=== PATIENT | female | born 1980 | race Caucasian/White ===

== ENCOUNTER 2021-08-30 10:49 | Observation (INO) | payer SELFPAY ==
[~2021-08-30] VITALS: Ht 160 cm; Wt 69.0 kg
--- NOTE | 2021-08-30 11:44 | RAD ---
Study: XR ABDOMEN COMP ACUTE Indication: Swallowed battery. Comparison: None. Findings: The cardiomediastinal silhouette and sg are within normal limits. No localized airspace opacity, pl eural effusion or pneumothorax. Two metallic foreign bodies, one projecting at the right upper quadrant and the other at the right lo wer quadrant. The right lower quadrant foreign body is likely within proximal colon. Uncertain locati on of the right upper quadrant foreign body. Nonobstructive bowel gas pattern. Mild colonic stool bur den. No radiographic evidence for pneumoperitoneum. Impression: Two ingested metallic foreign bodies projecting at the right upper and lower quadrants. See above. Electronically signed by: HARRISON KARIMI MD (08/30/2021 11:41 AM) [facility]
[2021-08-30] MEDS ORDERED: IV NORMAL SALINE 1000ML BAG 1,000 ML IV ONE (12:00)
[2021-08-30] MEDS ORDERED: fentaNYL PF VIAL 100 MCG/2 ML VIAL IVP ONE (12:00)
[2021-08-30] MEDS ORDERED: MORPHINE SULFATE 2 MG/ML INJ. IVP ONE (12:45)
[2021-08-30] MEDS ORDERED: FAMOTIDINE 20 MG/2 ML VIAL IVP ONE ×2 (12:45)
[2021-08-30] MEDS ORDERED: LIDO:MAALOX 1:1 20 ML SINGLE DOSE. SWSW ONE (12:45)
[2021-08-30] MEDS ORDERED: ONDANSETRON PF 4 MG/2 ML VIAL. IVP ONE (12:45)
--- NOTE | 2021-08-30 13:09 | PHYS DOC ---
Past Medical History Additional Past Medical Histor: CROHNS Past Surgical History: Hysterectomy, Tubal ligation Smoking Status: Never Smoker Alcohol Use: Occasionally Adult General Chief Complaint Chief Complaint: FOREIGN BODY HPI HPI The patient is a 40-year-old female with a history of anxiety and depression on medications including lithium and Xanax, as well as a questionable history of Crohn's disease, not on any medication for management. She presents for evaluation of what she describes as an inadvertent ingestion of a watch button battery prior to arrival. Patient states that she was "multitasking," changing the battery in her watch while she was taking her pills. She ended up swallowing a watch battery. This occurred a couple of hours prior to arrival. She denies that there was any self-harm intent and denies suicidal ideation. Patient endorses mild epigastric and right upper quadrant abdominal discomfort. She endorses some mild nausea as well. She denies vomiting, shortness of breath or chest pain, lower abdominal discomfort, flank pain, back pain, changes in bowel habits. Patient is alert and appropriately interactive and in no acute distress, although appearing quite anxious. Review of Systems Review of Systems A 12 point review of systems was completed and was negative except where noted in HPI above. Current Medications Current Medications Current Medications Medications (Trade) Dose Ordered Sig/Anna Start Time Stop Time Status Last Admin Dose Admin Fentanyl Citrate (Fentanyl 2ml Vial) 50 mcg 1X ONCE 08/30/21 12:00 08/30/21 12:01 Cancel Sodium Chloride 1,000 ml @ 1,000 mls/hr 1X ONCE 08/30/21 12:00 08/30/21 12:59 DC Allergies Allergies Allergies Coded Allergies Type Severity Reaction Last Updated Verified NSAIDS (Non-Steroidal Anti-Inflamma Allergy Unknown 08/30/21 No Physical Exam Physical Exam 40-year-old female appearing nontoxic and in no acute distress. Head is normocephalic and atraumatic. Neck is supple and nontender. Oropharynx is moist. Lungs are clear to auscultation at all stations. There is normal S1 and S2 without rubs or gallops and capillary refill is appropriate, less than 2 seconds globally. Abdomen is soft, nontender and nondistended. Skin is warm and dry without cyanosis, clubbing or edema. Psychiatrically, the patient demonstrates appropriate mood and affect and is alert. Current Patient Data Vital Signs Vital Signs Date Time Temp Pulse Resp B/P (MAP) Pulse Ox O2 Delivery O2 Flow Rate FiO2 08/30/21 11:00 98.5 90 16 114/69 (84) 96 Room Air 98.5 EKG EKG [] Radiology/Procedures Radiology/Procedures Study: XR ABDOMEN COMP ACUTE Indication: Swallowed battery. Comparison: None. Findings: The cardiomediastinal silhouette and sg are within normal limits. No localized airspace opacity, pleural effusion or pneumothorax. Two metallic foreign bodies, one projecting at the right upper quadrant and the other at the right lower quadrant. The right lower quadrant foreign body is likely within proximal colon. Uncertain location of the right upper quadrant foreign body. Nonobstructive bowel gas pattern. Mild colonic stool burden. No radiographic evidence for pneumoperitoneum. Impression: Two ingested metallic foreign bodies projecting at the right upper and lower quadrants. See above. Electronically signed by: HARRISON KARIMI MD (08/30/2021 11:41 AM) [facility] DICTATED and SIGNED BY: HARRISON KARIMI MD DATE: 08/30/21 [id number] 0 Course & Med Decision Making Course & Med Decision Making Acute abdominal series demonstrates no esophageal foreign body and a foreign body compatible with a button battery in the duodenum. There is also a second intestinal foreign body located over the cecum or the proximal large intestine. This appears to be a coin. Patient is unable to tell me how or why there is a coin in her abdomen. Case is discussed with Dr. Brady of gastroenterology who states that the battery is too far into the duodenum to be retrieved via upper endoscopy. She recommends that, in view of the patient's upper abdominal discomfort, that she be observed in the hospital with serial abdominal examinations and serial x-rays to determine next best steps. She also recommends that general surgery be consulted for management assistance. Have discussed case with Dr. Ramsey. Will bring in for further care under Dr. Quach, who graciously accepts. Suresh Disclaimer Dragon Disclaimer This electronic medical record was generated, in whole or in part, using a voice recognition dictation system. Departure Departure Impression: Primary Impression: Ingestion of button battery Disposition: ADMITTED INPATIENT Condition: STABLE Referrals: NO PCP (PCP) Problem Qualifiers Primary Impression: Ingestion of button battery Encounter type: initial encounter Qualified Codes: T18.9XXA - Foreign body of alimentary tract, part unspecified, initial encounter EFREM BURTON MD Aug 30, 2021 13:09
[2021-08-30 13:19] LABS: BASO % 1 % (0-3); EOS # 0.2 x10^3/uL (0.0-0.7); EOS % 3 % (0-3); HEMATOCRIT 31.8 % (36.0-47.0); HEMOGLOBIN 10.8 g/dL (12.0-15.5); LYMPH # 2.2 x10^3/uL (1.0-4.8); LYMPH % 34 % (24-48); MEAN CORPUSCULAR HEMOGLOBIN 33 pg (25-35); MEAN CORPUSCULAR HGB CONC 34 g/dL (31-37); MEAN CORPUSCULAR VOLUME 96 fL (79-100); MONO # 0.4 x10^3/uL (0.0-1.1); MONO % 7 % (0-9); NEUT # 3.4 x10^3/uL (1.8-7.7); NEUT % 55 % (31-73); PLATELET COUNT 267 x10^3/uL (140-400); RED CELL DISTRIBUTION WIDTH 13.4 % (11.5-14.5); WHITE BLOOD COUNT 6.3 x10^3/uL (4.0-11.0)
[2021-08-30 13:21] LABS: CALCIUM 7.7 mg/dL (8.5-10.1); CREATININE 0.6 mg/dL (0.6-1.0); GFR 111.9; POTASSIUM 3.7 mmol/L (3.5-5.1)
[2021-08-30 13:24] LABS: LI < 0.2 mmol/L (0.6-1.2)
[2021-08-30 13:29] LABS: ALBUMIN 3.4 g/dL (3.4-5.0); TOTAL BILIRUBIN 0.4 mg/dL (0.2-1.0); TOTAL PROTEIN 6.7 g/dL (6.4-8.2)
[2021-08-30 13:30] VITALS: BP 120/76
[2021-08-30 13:36] LABS: PREG TEST PT QUAL NEGATIVE (NEG)
--- NOTE | 2021-08-30 14:12 | PDOC2 ---
GI CONSULT Reason For Consult: foreign body ingestion HPI: HPI: 40-year-old female with a history small and large intestinal Crohn's on Humira, bipolar disorder, anxiety and depression on medications including lithium and Xanax seen in ER for abdominal pain and battery ingestion. Patient states that she was "multitasking," changing the battery in her watch while she was taking her pills. She ended up swallowing a watch battery. This occurred a couple of hours prior to arrival. She denies that there was any self-harm intent and denies suicidal ideation. Patient endorses an electric shock like RUQ pain. She endorses some mild nausea as well. She denies vomiting, shortness of breath or chest pain, lower abdominal discomfort, flank pain, back pain, changes in bowel habits. She was eating jello when I walked in and stated that her pain went from a 8- 10/10. Study: XR ABDOMEN COMP ACUTE - Two ingested metallic foreign bodies projecting at the right upper and lower quadrants. See above. PMH: PMH: Additional Past Medical Histor: CROHNS, bipolar disorder Past Surgical History: Hysterectomy, Tubal ligation Smoking Status: Never Smoker Alcohol Use: Occasionally Meds- Humira [facility] mothr with UC son with Juvenile polyps All NSAIDs peanuts PCN Social History: Smoke: No ALCOHOL: none Drugs: None ROS: GEN: Denies fevers, chills, sweats HEENT: Denies blurred vision, sore throat CV: Denies chest pain RESP: Denies shortness of air, cough GI: Per HPI : Denies hematuria, dysuria ENDO: Denies weight changes NEURO: Denies confusion, dizziness MSK: Denies weakness, joint pain/swelling SKIN: Denies jaundice, pruritus VItals: Vitals: Vital Signs Date Time Temp Pulse Resp B/P (MAP) Pulse Ox O2 Delivery O2 Flow Rate FiO2 08/30/21 13:43 97.6 97.6 08/30/21 13:30 77 18 120/76 (91) 98 Room Air Labs: Labs: Laboratory Tests Test 08/30/21 13:05 White Blood Count 6.3 x10^3/uL (4.0-11.0) Red Blood Count 3.30 x10^6/uL (3.50-5.40) Hemoglobin 10.8 g/dL (12.0-15.5) Hematocrit 31.8 % (36.0-47.0) Mean Corpuscular Volume 96 fL (79-100) Mean Corpuscular Hemoglobin 33 pg (25-35) Mean Corpuscular Hemoglobin Concent 34 g/dL (31-37) Red Cell Distribution Width 13.4 % (11.5-14.5) Platelet Count 267 x10^3/uL (140-400) Neutrophils (%) (Auto) 55 % (31-73) Lymphocytes (%) (Auto) 34 % (24-48) Monocytes (%) (Auto) 7 % (0-9) Eosinophils (%) (Auto) 3 % (0-3) Basophils (%) (Auto) 1 % (0-3) Neutrophils # (Auto) 3.4 x10^3/uL (1.8-7.7) Lymphocytes # (Auto) 2.2 x10^3/uL (1.0-4.8) Monocytes # (Auto) 0.4 x10^3/uL (0.0-1.1) Eosinophils # (Auto) 0.2 x10^3/uL (0.0-0.7) Basophils # (Auto) 0.0 x10^3/uL (0.0-0.2) Sodium Level 143 mmol/L (136-145) Potassium Level 3.7 mmol/L (3.5-5.1) Chloride Level 108 mmol/L (98-107) Carbon Dioxide Level 26 mmol/L (21-32) Anion Gap 9 (6-14) Blood Urea Nitrogen 11 mg/dL (7-20) Creatinine 0.6 mg/dL (0.6-1.0) Estimated GFR (Cockcroft-Gault) 111.9 BUN/Creatinine Ratio 18 (6-20) Glucose Level 89 mg/dL (70-99) Calcium Level 7.7 mg/dL (8.5-10.1) Total Bilirubin 0.4 mg/dL (0.2-1.0) Aspartate Amino Transf (AST/SGOT) 18 U/L (15-37) Alanine Aminotransferase (ALT/SGPT) 16 U/L (14-59) Alkaline Phosphatase 92 U/L (46-116) Total Protein 6.7 g/dL (6.4-8.2) Albumin 3.4 g/dL (3.4-5.0) Albumin/Globulin Ratio 1.0 (1.0-1.7) Serum Test, Qualitative Negative (NEG) Hester Level < 0.2 mmol/L (0.6-1.2) Hester Last Dose Date 08/30/21 Hester Last Dose Time 1000 Imaging: Imaging: Study: XR ABDOMEN COMP ACUTE Indication: Swallowed battery. Comparison: None. Findings: The cardiomediastinal silhouette and sg are within normal limits. No localized airspace opacity, pleural effusion or pneumothorax. Two metallic foreign bodies, one projecting at the right upper quadrant and the other at the right lower quadrant. The right lower quadrant foreign body is likely within proximal colon. Uncertain location of the right upper quadrant foreign body. Nonobstructive bowel gas pattern. Mild colonic stool burden. No radiographic evidence for pneumoperitoneum. Impression: Two ingested metallic foreign bodies projecting at the right upper and lower quadrants. See above. PE: GEN: NAD HEENT: Atraumatic, PERRLA LUNGS: CTAB HEART: RRR, no murmurs ABD: NABS, diffuse TTP EXTREMITY: No edema SKIN: No rashes, no jaundice NEURO/PSYCH: A & O 3 A/P: A/P: A/P 1) Foreign body ingestion - long discussion with ER doctor who called to get okay to discharge from ER. Imaging did not clearly identify location of battery that has been ingested other than beyond esophagus and stomach. I recommended admits rather than discharge given abdominal pain. Recommend serial X rays and surgical input. She also has another unknown foreign body distally that she does not remember swallowing. 2)Crohn's- on Humira 3) Anemia- monitor Hgb 4) Abdominal pain- serial KUB ANTELMO GARIBAY MD Aug 30, 2021 14:12
--- NOTE | 2021-08-30 14:15 | SSS ---
DATE OF SERVICE: 08/30/2021 ADMIT DATE: 08/30/2021 SHORT STAY SUMMARY CHIEF COMPLAINT: Ingestion of battery. HISTORY OF PRESENT ILLNESS: The patient is a pleasant 40-year-old female who has bipolar disease. She ingested a lithium battery. She thinks she may have gotten it messed up with her medications, which were in her pocket. She kind of took everything at once. After further discussion with her, she explained that she also realizes that there is lithium in the battery and that she is on lithium and thought maybe the battery might replace it, question shey. I am not quite clear what her intentions were, but she is somewhat pleasantly confused. Nevertheless, I discussed the case with the ER physician. We are originally going to let her go home, but after talking to the GI doctor, we thought we probably better observe her overnight. I am also going to consult the psychiatric assessment team. It should also be noted that when we checked the x-ray of her abdomen, she also has a quarter in the right lower quadrant. She states she is not sure how she swallowed that. PAST MEDICAL HISTORY: Bipolar disease. ALLERGIES: None. FAMILY HISTORY: Diabetes. SOCIAL HISTORY: She does not drink, smoke or take drugs. 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 She is . Her mom is a nurse practitioner. She states she is working on her master's degree. MEDICATIONS: Reviewed. Please refer to the MRAD. REVIEW OF SYSTEMS: GENERAL: No history of weight change, weakness or fevers. SKIN: No bruising, hair changes or rashes. EYES: No blurred, double or loss of vision. NOSE AND THROAT: No history of nosebleeds, hoarseness or sore throat. HEART: No history of palpitations, chest pain or shortness of breath on exertion. LUNGS: Denies cough, hemoptysis, wheezing or shortness of breath. GASTROINTESTINAL: Denies changes in appetite, nausea, vomiting, diarrhea or constipation. GENITOURINARY: No history of frequency, urgency, hesitancy or nocturia. NEUROLOGIC: Denies history of numbness, tingling, tremor or weakness. PSYCHIATRIC: No history of panic, anxiety or depression. ENDOCRINE: No history of heat or cold intolerance, polyuria or polydipsia. EXTREMITIES: Denies muscle weakness, joint pain, pain on walking or stiffness. PHYSICAL EXAMINATION: VITALS: Within normal limits and are stable. GENERAL: No apparent distress. Alert and oriented. HEENT: Normal cephalic atraumatic, external auditory canals are patent. Eyes: Extraocular muscles are intact, pupils are equally round and reactive to light and accommodation. MUSCULOSKELETAL: Well developed, well nourished, good range of motion. ENDOCRINE: No thyromegaly was palpated. LYMPHATICS: No cervical chain or axillary nodes were noted. HEMATOPOIETIC: No bruising. NECK: Supple, no JVD, no thyromegaly was noted. LUNGS: Clear to auscultation in all lung shaw without rhonchi or wheezing. HEART: RRR, S1, S2 present. Peripheral pulses intact, no obvious murmurs were noted. ABDOMEN: Soft, nontender. Positive bowel sounds, no organomegaly, normal bowel sounds. EXTREMITIES: Without any cyanosis, clubbing, or edema. Pedal pulses intact, Homans sign is negative. NEUROLOGIC: Normal speech, normal tone. A and O x 3, moves all extremities, no obvious focal deficits. PSYCHIATRIC: She is pleasant, somewhat confused, but overall pleasant. SKIN: No ulcerations or rashes, good skin turgor, no jaundice. VASCULAR: Good capillary refill, neurovascular bundle appears to be intact. ASSESSMENT AND PLAN: Ingestion of lithium battery and quarter. We will go ahead and observe her overnight. I consulted the psychiatric assessment team and GI. Continue home medicines. Deep venous thrombosis prophylaxis. Full code. IRENE/ABDULAZIZ DR: IRENE/steven TID: [id number]
[2021-08-30] MEDS ORDERED: LITH300T22 PO (14:35)
[2021-08-30] MEDS ORDERED: QUET300T5 PO (14:35)
[2021-08-30] MEDS ORDERED: DIVA250T PO (14:35)
[2021-08-30] MEDS ORDERED: LORA-434 PO (14:35)
[2021-08-30] MEDS ORDERED: ZOLP5TAB PO (14:35)
[2021-08-30] MEDS ORDERED: OMEP20TA63 PO (14:37)
[2021-08-30] MEDS ORDERED: PNV1TABL78 PO (14:37)
[2021-08-30] MEDS ORDERED: ADAL40PE SQ (14:38)
[2021-08-30] MEDS: ONDANSETRON PF 4 MG/2 ML VIAL. IVP PRN ×2 (14:54→20:24)
[2021-08-30] MEDS: MORPHINE SULFATE 2 MG/ML INJ. IVP PRN ×3 (14:55→20:57)
[2021-08-30] MEDS: IV NORMAL SALINE 1000ML BAG 1,000 ML IV SCH (18:16)
[2021-08-30 18:30] VITALS: BP 99/56
[2021-08-30 19:00] VITALS: BP 87/55
[2021-08-30] MEDS ORDERED: ZOLPIDEM 5 MG TABLET. PO PRN (22:15)
[2021-08-30 23:00] VITALS: BP 96/51
[2021-08-31] MEDS: LITHIUM CARBONATE ER 300 MG TABLET.ER PO SCH ×3 (00:30→13:09)
[2021-08-31] MEDS: DIVALPROEX EXTENDED RELEASE 250 MG TAB.ER.24H. PO SCH ×2 (00:30→08:34)
[2021-08-31] MEDS ORDERED: QUEtiapine 100 MG TABLET. PO SCH (00:30)
[2021-08-31] MEDS: MORPHINE SULFATE 2 MG/ML INJ. IVP PRN ×6 (00:31→13:08)
[2021-08-31 03:00] VITALS: BP 110/59
[2021-08-31] MEDS: IV NORMAL SALINE 1000ML BAG 1,000 ML IV SCH (03:35)
[2021-08-31 07:00] VITALS: BP 99/67
[2021-08-31] MEDS ORDERED: PANTOPRAZOLE 40 MG TABLET.DR. PO SCH (07:30)
--- NOTE | 2021-08-31 08:41 | PDOC2 ---
CONSULT Date of Consult Date of Consult DATE: 08/31/21 TIME: 08:37 Reason for Consult Reason for Consult: Ingested lithium battery Referring Physician Referring Physician: Main Identification/Chief Complaint Chief Complaint Patient describes some abdominal pain but more like shocking she thinks the batteries are causing electrical shock Source Source: Chart review, Patient History of Present Illness Reason for Visit: 40-year-old female with bipolar disorder swallowed battery and advertently thinking it was her medication now describes a shocking sensation in her abdomen. Denies any nausea vomiting Past Medical History Cardiovascular: No pertinent hx Pulmonary: No pertinent hx GI: No pertinent hx Heme/Onc: No pertinent hx Hepatobiliary: No pertinent hx Psych: Bipolar Rheumatologic: No pertinent hx Infectious disease: No pertinent hx ENT: No pertinent hx Renal/: No pertinent hx Endocrine: No pertinent hx Dermatology: No pertinent hx Past Surgical History Past Surgical History: No pertinent history Family History Family History: No Significant Social History No ALCOHOL: none Drugs: None Current Problem List Problem List Problems Medical Problems: (1) Ingestion of button battery Status: Acute Current Medications Current Medications Current Medications Fentanyl Citrate (Fentanyl 2ml Vial) 50 mcg 1X ONCE IVP ; Start 08/30/21 at 12:00; Stop 08/30/21 at 12:01; Status Cancel Sodium Chloride 1,000 ml @ 1,000 mls/hr 1X ONCE IV Last administered on 08/30/21at 12:53; Start 08/30/21 at 12:00; Stop 08/30/21 at 12:59; Status DC Morphine Sulfate (Morphine Sulfate) 2 mg 1X ONCE IVP Last administered on 08/30/21at 12:55; Start 08/30/21 at 12:45; Stop 08/30/21 at 12:46; Status DC Famotidine (Pepcid Vial) 20 mg 1X ONCE IVP ; Start 08/30/21 at 12:45; Stop 08/30/21 at 12:46; Status Cancel Multi-Ingredient Mouthwash/Gargle (Gi Cocktail) 20 ml 1X ONCE SWSW Last administered on 08/30/21at 13:02; Start 08/30/21 at 12:45; Stop 08/30/21 at 12:46; Status DC Famotidine (Pepcid Vial) 20 mg 1X ONCE IVP Last administered on 08/30/21at 12:58; Start 08/30/21 at 12:45; Stop 08/30/21 at 12:46; Status DC Ondansetron HCl (Zofran) 4 mg 1X ONCE IVP Last administered on 08/30/21at 12:53; Start 08/30/21 at 12:45; Stop 08/30/21 at 12:46; Status DC Ondansetron HCl (Zofran) 4 mg PRN Q8HRS PRN IVP NAUSEA/VOMITING Last administered on 08/30/21at 20:24; Start 08/30/21 at 13:15; Stop 08/31/21 at 13:14 Morphine Sulfate (Morphine Sulfate) 2 mg PRN Q2HR PRN IVP PAIN Last administered on 08/31/21 06:06; Start 08/30/21 at 13:15; Stop 08/31/21 at 13:14 Sodium Chloride 1,000 ml @ 100 mls/hr Q10H IV Last administered on 08/31/21at 03:35; Start 08/30/21 at 17:45 Divalproex Sodium (Depakote Er) 250 mg BID PO Last administered on 08/31/21 00:30; Start 08/31/21 at 00:30 [place] Carbonate (Lithobid) 300 mg TID PO Last administered on 08/31/21 00:30; Start 08/31/21 at 00:30 Lorazepam (Ativan) 1 mg BID PO Last administered on 08/31/21 00:29; Start 08/31/21 at 00:30 Zolpidem Tartrate (Ambien) 5 mg PRN QHS PRN PO INSOMNIA Last administered on 08/31/21 00:29; Start 08/30/21 at 22:15 Pantoprazole Sodium (Protonix) 40 mg DAILYAC PO Last administered on 08/31/21 06:05; Start 08/31/21 at 07:30 Multivit/ Folic Acid/Iron (Multivitamin ) 1 tab DAILY PO ; Start 08/31/21 at 09:00 Quetiapine Fumarate (SEROquel) 300 mg QHS PO Last administered on 08/31/21at 00:29; Start 08/31/21 at 00:30 Enoxaparin Sodium (Lovenox 40mg Syringe) 40 mg DAILY SQ ; Start 08/31/21 at 09:00 Active Scripts Active Reported Humira (Adalimumab) 40 Mg/0.8 Ml Pen.ij.kit 1 Syr SQ Q2WKS Multi Tablet (Pnv No.122/Iron/Folic Acid) 1 Each Tablet 1 Tab PO DAILY 30 Days Prilosec Otc (Omeprazole Magnesium) 20 Mg Tablet.dr 1 Tab PO DAILY 30 Days Depakote Er (Divalproex Sodium) 250 Mg Tab.er.24h 1 Tab PO BID Ambien (Zolpidem Tartrate) 5 Mg Tablet 5 Mg PO PRN QHS PRN Ativan (Lorazepam) 1 Mg Tablet 1 Mg PO BID Seroquel (Quetiapine Fumarate) 300 Mg Tablet 1 Tab PO QHS Lithobid ([place] Carbonate) 300 Mg Tablet.er 1 Tab PO TID 30 Days Allergies Allergies: Coded Allergies: NSAIDS (Non-Steroidal Anti-Inflamma (Unverified Adverse Reaction, Unknown, 08/31/21) DUE TO CROHNS ROS General: No: Chills, Night Sweats, Fatigue, Malaise, Appetite, Other PSYCHOLOGICAL ROS: YES: Depression Eyes: No Blurry vision, No Decreased vision, No Double vision, No Dry eyes, No Excessive tearing, No Eye Pain, No Itchy Eyes, No Loss of vision, No Photophobia, No Scotomata, No Uses contacts, No Uses glasses, No Other HEENT: No: Heacaches, Visual Changes, Hearing change, Nasal congestion, Nasal discharge, Oral lesions, Sinus pain, Sore Throat, Epistaxis, Sneezing, Snoring, Tinnitus, Vertigo, Vocal changes, Other ALLERGY AND IMMUNOLOGY: No: Hives, Insect Bite Sensitivity, Itchy/Watery Eyes, Nasal Congestion, Post Nasal Drip, Seasonal Allergies, Other Hematological and Lymphatic: No: Bleeding Problems, Blood Clots, Blood Transfusions, Brusing, Night Sweats, Pallor, Swollen Lymph Nodes, Other ENDOCRINE: No: Breast Changes, Galactorrhea, Hair Pattern Changes, Hot Flashes, Malaise/lethargy, Mood Swings, Palpitations, Polydipsia/polyuria, Skin Changes, Temperature Intolerance, Unexpected Weight Changes, Other Breast: No New/Changing Breast Lumps, No Nipple changes, No Nipple discharge, No Other Respiratory: No: Cough, Hemoptysis, Orthopnea, Pleuritic Pain, Shortness of breath, SOB with excertion, Sputum Changes, Stridor, Tachypnea, Wheezing, Other Cardiovascular: No Chest Pain, No Palpitations, No Orthopnea, No Paroxysmal Noc. Dyspnea, No Edema, No Lt Headedness, No Other Gastrointestinal: Yes Abdominal Pain Genitourinary: No Dysuria, No Frequency, No Incontinence, No Hematuria, No Rete ntion, No Discharge, No Urgency, No Pain, No Flank Pain, No Other, No , No , No , No , No , No , No Musculoskeletal: No Gait Disturbance, No Joint Pain, No Joint Stiffness, No Joint Swelling, No Muscle Pain, No Muscular Weakness, No Pain In:, No Swelling In:, No Other Neurological: No Behavorial Changes, No Bowel/Bladder ControlChng, No Confusion, No Dizziness, No Gait Disturbance, No Headaches, No Impaired Coord/balance, No Memory Loss, No Numbness/Tingling, No Seizures, No Speech Problems, No Tremors, No Visual Changes, No Weakness, No Other Skin: No Dry Skin, No Eczema, No Hair Changes, No Lumps, No Mole Changes, No Mottling, No Nail Changes, No Pruritus, No Rash, No Skin Lesion Changes, No Other, No Acne Physical Exam General: Alert, Oriented X3, Cooperative, No acute distress HEENT: Atraumatic, PERRLA, EOMI Lungs: Clear to auscultation, Normal air movement Heart: Regular rate, No murmurs Abdomen: Normal bowel sounds, Soft, No tenderness Extremities: No edema Skin: No significant lesion Neuro: Normal speech Psych/Mental Status: Mental status NL Vitals VITALS Vital Signs Date Time Temp Pulse Resp B/P (MAP) Pulse Ox O2 Delivery O2 Flow Rate FiO2 08/31/21 07:45 Room Air 08/31/21 07:00 98.9 60 16 99/67 (78) 93 98.9 Labs Labs Laboratory Tests Test 08/30/21 13:05 White Blood Count 6.3 x10^3/uL (4.0-11.0) Red Blood Count 3.30 x10^6/uL (3.50-5.40) Hemoglobin 10.8 g/dL (12.0-15.5) Hematocrit 31.8 % (36.0-47.0) Mean Corpuscular Volume 96 fL (79-100) Mean Corpuscular Hemoglobin 33 pg (25-35) Mean Corpuscular Hemoglobin Concent 34 g/dL (31-37) Red Cell Distribution Width 13.4 % (11.5-14.5) Platelet Count 267 x10^3/uL (140-400) Neutrophils (%) (Auto) 55 % (31-73) Lymphocytes (%) (Auto) 34 % (24-48) Monocytes (%) (Auto) 7 % (0-9) Eosinophils (%) (Auto) 3 % (0-3) Basophils (%) (Auto) 1 % (0-3) Neutrophils # (Auto) 3.4 x10^3/uL (1.8-7.7) Lymphocytes # (Auto) 2.2 x10^3/uL (1.0-4.8) Monocytes # (Auto) 0.4 x10^3/uL (0.0-1.1) Eosinophils # (Auto) 0.2 x10^3/uL (0.0-0.7) Basophils # (Auto) 0.0 x10^3/uL (0.0-0.2) Sodium Level 143 mmol/L (136-145) Potassium Level 3.7 mmol/L (3.5-5.1) Chloride Level 108 mmol/L (98-107) Carbon Dioxide Level 26 mmol/L (21-32) Anion Gap 9 (6-14) Blood Urea Nitrogen 11 mg/dL (7-20) Creatinine 0.6 mg/dL (0.6-1.0) Estimated GFR (Cockcroft-Gault) 111.9 BUN/Creatinine Ratio 18 (6-20) Glucose Level 89 mg/dL (70-99) Calcium Level 7.7 mg/dL (8.5-10.1) Total Bilirubin 0.4 mg/dL (0.2-1.0) Aspartate Amino Transf (AST/SGOT) 18 U/L (15-37) Alanine Aminotransferase (ALT/SGPT) 16 U/L (14-59) Alkaline Phosphatase 92 U/L (46-116) Total Protein 6.7 g/dL (6.4-8.2) Albumin 3.4 g/dL (3.4-5.0) Albumin/Globulin Ratio 1.0 (1.0-1.7) Serum Test, Qualitative Negative (NEG) [place] Level < 0.2 mmol/L (0.6-1.2) [place] Last Dose Date 08/30/21 [place] Last Dose Time 1000 Laboratory Tests Test 08/30/21 13:05 White Blood Count 6.3 x10^3/uL (4.0-11.0) Red Blood Count 3.30 x10^6/uL (3.50-5.40) Hemoglobin 10.8 g/dL (12.0-15.5) Hematocrit 31.8 % (36.0-47.0) Mean Corpuscular Volume 96 fL (79-100) Mean Corpuscular Hemoglobin 33 pg (25-35) Mean Corpuscular Hemoglobin Concent 34 g/dL (31-37) Red Cell Distribution Width 13.4 % (11.5-14.5) Platelet Count 267 x10^3/uL (140-400) Neutrophils (%) (Auto) 55 % (31-73) Lymphocytes (%) (Auto) 34 % (24-48) Monocytes (%) (Auto) 7 % (0-9) Eosinophils (%) (Auto) 3 % (0-3) Basophils (%) (Auto) 1 % (0-3) Neutrophils # (Auto) 3.4 x10^3/uL (1.8-7.7) Lymphocytes # (Auto) 2.2 x10^3/uL (1.0-4.8) Monocytes # (Auto) 0.4 x10^3/uL (0.0-1.1) Eosinophils # (Auto) 0.2 x10^3/uL (0.0-0.7) Basophils # (Auto) 0.0 x10^3/uL (0.0-0.2) Sodium Level 143 mmol/L (136-145) Potassium Level 3.7 mmol/L (3.5-5.1) Chloride Level 108 mmol/L (98-107) Carbon Dioxide Level 26 mmol/L (21-32) Anion Gap 9 (6-14) Blood Urea Nitrogen 11 mg/dL (7-20) Creatinine 0.6 mg/dL (0.6-1.0) Estimated GFR (Cockcroft-Gault) 111.9 BUN/Creatinine Ratio 18 (6-20) Glucose Level 89 mg/dL (70-99) Calcium Level 7.7 mg/dL (8.5-10.1) Total Bilirubin 0.4 mg/dL (0.2-1.0) Aspartate Amino Transf (AST/SGOT) 18 U/L (15-37) Alanine Aminotransferase (ALT/SGPT) 16 U/L (14-59) Alkaline Phosphatase 92 U/L (46-116) Total Protein 6.7 g/dL (6.4-8.2) Albumin 3.4 g/dL (3.4-5.0) Albumin/Globulin Ratio 1.0 (1.0-1.7) Serum Test, Qualitative Negative (NEG) [place] Level < 0.2 mmol/L (0.6-1.2) [place] Last Dose Date 08/30/21 [place] Last Dose Time 1000 Images Images This morning's abdominal film shows the 2 foreign bodies are further along in the colon Assessment/Plan Assessment/Plan Ingested foreign bodies appear to be moving past any narrow point should pass without any difficulties would advance diet consider laxative No surgical plan MICHELLE LEA MD Aug 31, 2021 08:41
[2021-08-31] MEDS ORDERED: ENOXAPARIN 40 MG/0.4 ML SYRINGE. SQ SCH (09:00)
[2021-08-31] MEDS ORDERED: PRENATAL MULTIVITAMIN TABLET. PO SCH (09:00)
--- NOTE | 2021-08-31 09:20 | RAD ---
Single view of the abdomen 08/31/2021 INDICATION: Foreign body ingestion COMPARISON STUDY: Abdominal series, yesterday. FINDINGS: 2 discoid metallic density objects project over the right abdomen possibly within the proxi mal colon. The appearance is concerning for batteries. There is no evidence of obstruction or pneumop eritoneum. No acute osseous changes are seen. Impression: Similar position of 2 discoid metallic radiodensities projecting over the right abdomen, concerning for batteries. Gastroenterology consultation recommended. Electronically signed by: Anish Clinton MD (08/31/2021 9:18 AM) [id number]
[2021-08-31 10:18] LABS: CALCIUM 8.2 mg/dL (8.5-10.1); CREATININE 0.8 mg/dL (0.6-1.0); GFR 80.3
[2021-08-31 10:23] LABS: BASO % 1 % (0-3); EOS # 0.2 x10^3/uL (0.0-0.7); EOS % 4 % (0-3); HEMATOCRIT 30.5 % (36.0-47.0); HEMOGLOBIN 10.8 g/dL (12.0-15.5); LYMPH # 2.4 x10^3/uL (1.0-4.8); LYMPH % 53 % (24-48); MEAN CORPUSCULAR HEMOGLOBIN 35 pg (25-35); MEAN CORPUSCULAR HGB CONC 35 g/dL (31-37); MEAN CORPUSCULAR VOLUME 98 fL (79-100); MONO # 0.3 x10^3/uL (0.0-1.1); MONO % 6 % (0-9); NEUT # 1.7 x10^3/uL (1.8-7.7); NEUT % 36 % (31-73); PLATELET COUNT 218 x10^3/uL (140-400); RED BLOOD COUNT 3.12 x10^6/uL (3.50-5.40); RED CELL DISTRIBUTION WIDTH 13.4 % (11.5-14.5); WHITE BLOOD COUNT 4.6 x10^3/uL (4.0-11.0)
[2021-08-31 11:00] VITALS: BP 102/67
--- NOTE | 2021-08-31 11:26 | PDOC ---
Date of Service: DATE: 08/31/21 TIME: : Subjective: Subjective: Intermittent pains in abdomen (nonspecific location) like being shocked. Gas, no stool. Wants to eat. EGD couple years ago in [place], can't remember when last colonoscopy was. On Humira (last dose 1 week ago), previously Stelara and prednisone. Objective: Vital Signs: Vital Signs Date Time Temp Pulse Resp B/P (MAP) Pulse Ox O2 Delivery O2 Flow Rate FiO2 08/31/21 11:01 Room Air 08/31/21 07:00 98.9 60 16 99/67 (78) 93 98.9 Labs: Laboratory Tests Test 08/30/21 13:05 08/31/21 09:14 White Blood Count 6.3 x10^3/uL 4.6 x10^3/uL Red Blood Count 3.30 x10^6/uL 3.12 x10^6/uL Hemoglobin 10.8 g/dL 10.8 g/dL Hematocrit 31.8 % 30.5 % Mean Corpuscular Volume 96 fL 98 fL Mean Corpuscular Hemoglobin 33 pg 35 pg Mean Corpuscular Hemoglobin Concent 34 g/dL 35 g/dL Red Cell Distribution Width 13.4 % 13.4 % Platelet Count 267 x10^3/uL 218 x10^3/uL Neutrophils (%) (Auto) 55 % 36 % Lymphocytes (%) (Auto) 34 % 53 % Monocytes (%) (Auto) 7 % 6 % Eosinophils (%) (Auto) 3 % 4 % Basophils (%) (Auto) 1 % 1 % Neutrophils # (Auto) 3.4 x10^3/uL 1.7 x10^3/uL Lymphocytes # (Auto) 2.2 x10^3/uL 2.4 x10^3/uL Monocytes # (Auto) 0.4 x10^3/uL 0.3 x10^3/uL Eosinophils # (Auto) 0.2 x10^3/uL 0.2 x10^3/uL Basophils # (Auto) 0.0 x10^3/uL 0.0 x10^3/uL Sodium Level 143 mmol/L 143 mmol/L Potassium Level 3.7 mmol/L 4.0 mmol/L Chloride Level 108 mmol/L 107 mmol/L Carbon Dioxide Level 26 mmol/L 28 mmol/L Anion Gap 9 8 Blood Urea Nitrogen 11 mg/dL 6 mg/dL Creatinine 0.6 mg/dL 0.8 mg/dL Estimated GFR (Cockcroft-Gault) 111.9 80.3 BUN/Creatinine Ratio 18 Glucose Level 89 mg/dL 81 mg/dL Calcium Level 7.7 mg/dL 8.2 mg/dL Total Bilirubin 0.4 mg/dL Aspartate Amino Transf (AST/SGOT) 18 U/L Alanine Aminotransferase (ALT/SGPT) 16 U/L Alkaline Phosphatase 92 U/L Total Protein 6.7 g/dL Albumin 3.4 g/dL Albumin/Globulin Ratio 1.0 Serum Test, Qualitative Negative [place] Level < 0.2 mmol/L [place] Last Dose Date 08/30/21 [place] Last Dose Time 1000 Imaging: KUB 08/31 Impression: Similar position of 2 discoid metallic radiodensities projecting over the right abdomen, concerning for batteries. Gastroenterology consultation recommended. PE: GEN: NAD - having blood drawn - a little uncomfortable LUNGS: CTAB HEART: RRR ABD: NABS, S/ND/NT NEURO/PSYCH: A & O 3 A/P: Foreign body ingestion Abd pain H/o Crohn's on Humira Mild anemia - stable -- D/w Dr. Delong who reviewed KUB - batteries should pass - okay to advance diet. Note given Relistor since I have seen. Needs GI follow-up re: h/o Crohn's. Justicifation of Admission Dx: Justifications for Admission: Justification of Admission Dx: Yes YAYA ROBERTS Aug 31, 2021 11:26
[2021-08-31] MEDS ORDERED: METHYLNALTREXONE 12 MG/0.6 ML VIAL. SQ ONE (11:30)
--- NOTE | 2021-08-31 12:38 | NUR ---
SW following. Discussed with RN, pt from home. Discharge order for home with self care. PAT cleared pt - pt follows with a psychiatrist and has resources for [facility] and [facility]. Med Assist following for self pay status.
[2021-08-31] MEDS: ONDANSETRON PF 4 MG/2 ML VIAL. IVP PRN (13:08)
[2021-08-31 15:00] VITALS: BP 95/61
--- NOTE | 2021-08-31 16:59 | NUR ---
Discharge instructions given. Answered questions and concerns. Verbalized understanding. Pt discharged home. Escorted out by w/c.
--- NOTE | 2021-08-31 18:28 | PDOC3 ---
[facility]-Discharge Summary Date of Admission: Date of Admission: Aug 30, 2021 Date of Discharge: Date of Discharge: Aug 31, 2021 Admission Diagnosis: Problems: (1) Ingestion of button battery Consults: Consults: GI Hospital Course: Hospital Course: Ingestion of lithium battery and quarter. We will go ahead and observe her overnight. I consulted the psychiatric assessment team and GI. Continue home medicines. Deep venous thrombosis prophylaxis. Full code. 08/31 Patient evaluated examined at bedside. Abdominal pain improving. Will give dose of Relistor for opioid-induced constipation. She can discharge today. Greater than 30 minutes spent in discharge. 21 minutes advance care planning. Disposition: Disposition/Orders: D/C to Home Activity: Activity: Resume previous activity Diet: Diet: Regular Medications: Home Meds Reported Medications Adalimumab (HUMIRA) 40 Mg/0.8 Ml Pen.ij.kit, 1 SYR SQ Q2WKS for Crohns Disease, #6 SYR 3 Refills 08/30/21 Pnv No.122/Iron/Folic Acid ( Multi Tablet) 1 Each Tablet, 1 TAB PO DAILY for supplement for 30 Days, #30 TAB 0 Refills 08/30/21 Omeprazole Magnesium (PRILOSEC OTC) 20 Mg Tablet.dr, 1 TAB PO DAILY for GERD for 30 Days, #30 TAB 0 Refills 08/30/21 Divalproex Sodium (DEPAKOTE ER) 250 Mg Tab.er.24h, 1 TAB PO BID for mood stabilizer, #30 TAB 2 Refills 08/30/21 Zolpidem Tartrate (AMBIEN) 5 Mg Tablet, 5 MG PO PRN QHS PRN for INSOMNIA, TAB 0 Refills 08/30/21 Lorazepam (ATIVAN) 1 Mg Tablet, 1 MG PO BID for anxiety, TAB 08/30/21 Quetiapine Fumarate (SEROQUEL) 300 Mg Tablet, 1 TAB PO QHS for mood, #30 TAB 1 Refill 08/30/21 [place] Carbonate (LITHOBID) 300 Mg Tablet.er, 1 TAB PO TID for mood for 30 Days, #90 TAB 0 Refills 08/30/21 Scheduled Adalimumab (Humira), 1 SYR SQ Q2WKS, (Reported) Divalproex Sodium (Depakote Er), 1 TAB PO BID, (Reported) [place] Carbonate (Lithobid), 1 TAB PO TID, (Reported) Lorazepam (Ativan), 1 MG PO BID, (Reported) Omeprazole Magnesium (Prilosec Otc), 1 TAB PO DAILY, (Reported) Pnv No.122/Iron/Folic Acid ( Multi Tablet), 1 TAB PO DAILY, (Reported) Quetiapine Fumarate (Seroquel), 1 TAB PO QHS, (Reported) Scheduled PRN Zolpidem Tartrate (Ambien), 5 MG PO PRN QHS PRN for INSOMNIA, (Reported) Justicifation of Admission Dx: Justifications for Admission: Justification of Admission Dx: Yes KWAKU SANTANA MD Aug 31, 2021 18:28
== END 2021-08-31 16:59 | disposition home or self-care (01) ==
LOC: ER 10:49 → 2 NORTH 12:26
PROVIDERS: ADMIT Internal Medicine; ATTEND Internal Medicine
DX: T18.2XXA Foreign body in stomach, initial encounter (principal); D64.9 Anemia, unspecified; R10.11 Right upper quadrant pain; R10.13 Epigastric pain; F31.9 Bipolar disorder, unspecified; K50.80 Crohn's disease of both small and large intestine without complications; K59.03 Drug induced constipation; Z90.710 Acquired absence of both cervix and uterus; Z98.51 Tubal ligation status; X58.XXXA Exposure to other specified factors, initial encounter; Y93.89 Activity, other specified; Y92.89 Other specified places as the place of occurrence of the external cause
CPT/HCPCS: 36415; 74018; 74022; 80048; 80053; 80178; 82607; 83540; 83550; 84703; 85025; 96361; 96372; 96374; 96375; 96376; 99284; G0378; J1650; J2212; J2270; J2405; J3490; J7030; G0379